=== PATIENT | male | born 1985 | race American Indian/Alaskan Native ===

== ENCOUNTER 2017-01-14 13:53 | Emergency (ER) | payer OTHER ==
[2017-01-14] MEDS ORDERED: NACL 0.9% 1000 ML 1,000 ML IV ONE (15:12)
[2017-01-14] MEDS ORDERED: PEPCID IV ONE (15:12)
[2017-01-14] MEDS ORDERED: REGLAN IV ONE (15:12)
[2017-01-14 15:28] VITALS: BP 159/105
[2017-01-14 16:09] LABS: Basophils % (Auto) 0.7 % (0.0-1.8); Hematocrit 50.6 % (35.5-45.6); Hemoglobin 17.6 gm/dl (11.8-15.2); Mean Corpuscular HGB Conc 35 % (32-34); Mean Corpuscular Hemoglobin 32 pg (28-32); Mean Corpuscular Volume 91 fl (84-94); Platelet Count 222 K/mm3 (140-440); Red Blood Count 5.58 M/mm3 (3.65-5.03); Red Cell Distribution Width 13.5 % (13.2-15.2); White Blood Count 7.4 K/mm3 (4.5-11.0)
[2017-01-14 16:23] LABS: Alanine Aminotransferase 19 units/L (7-56); Albumin 4.3 g/dL (3.9-5); Albumin/Globulin Ratio 1.6 %; Alkaline Phosphatase 39 units/L (35-129); Anion Gap 23 mmol/L; Blood Urea Nitrogen 10 mg/dL (9-20); Calcium 8.9 mg/dL (8.4-10.2); Carbon Dioxide 22 mmol/L (22-30); Chloride 99.5 mmol/L (98-107); Glucose 88 mg/dL (75-100); Potassium 4.4 mmol/L (3.6-5.0); Sodium 140 mmol/L (137-145)
--- NOTE | 2017-01-14 21:14 | Emergency Department Report ---
Entered by SANDIE LIM, acting as scribe for DIMITRY BURNHAM PA. ED N/V/D HPI - General Chief complaint: Nausea/Vomiting/Diarrhea Stated complaint: ABD ISSUES Time Seen by Provider: 01/14/17 15:03 Source: patient Mode of arrival: Ambulatory Limitations: No Limitations - History of Present Illness Initial comments: 31 y/o male with a PMHx of HTN presents to the ED c/o nausea and vomiting for 3 days. Moderate in severity. Aggravated with eating and alleviated with nothing. Reports associated weakness, and substernal chest pain and epigastric abdominal pain with eating, but he denies throat constrictions, diarrhea, constipation, fever, and chills. Notes he hasn't eaten in 2 days, because he vomits the food contents up. Notes he has a burning sensation with PO intake. Patient states he was seen by his PCP 2 weeks ago for sudden onset of acid reflux and prescribed Nexium. Took prescribed Nexium 20 mg BID for the last 2 weeks with no relief. Denies Hx of GERD. NKDA. complaint: nausea, vomiting Onset/Timin -: days(s) Description of Vomiting: food contents, watery Associated Abdominal Pain: Yes (only with eating) Location: epigastric Radiation: none Severity: moderate Quality: other (burning) Consistency: constant Improves with: none Worsens with: eating Context: other (acid reflux) Associated Symptoms: denies other symptoms, chest pain (substernal chest pain with eating), nausea/vomiting, weakness, other (epigastric abdominal pain with eating). denies: myalgias, cough, diaphoresis, fever/chills, headaches, loss of appetite, malaise, rash, dysuria, shortness of breath, syncope - Related Data Previous Rx's Medication Instructions Recorded Last Taken Type Ondansetron [Zofran Odt] 4 mg PO TID #30 tab.rapdis 01/14/17 Unknown Rx Ranitidine HCl [Heartburn Relief] 150 mg PO BID #30 tablet 01/14/17 Unknown Rx Allergies Allergy/AdvReac Type Severity Reaction Status Date / Time No Known Allergies Allergy Unverified 01/14/17 14:08 ED Review of Systems Comment: All other systems reviewed and negative Constitutional: weakness. denies: chills, diaphoresis, fever Eyes: denies: eye pain, eye discharge, vision change ENT: denies: ear pain, throat pain Respiratory: denies: cough, orthopnea, shortness of breath, SOB with exertion, SOB at rest, stridor, wheezing Cardiovascular: chest pain (substernal chest pain with eating). denies: palpitations, dyspnea on exertion, orthopnea, edema, syncope, paroxysmal nocturnal dyspnea Gastrointestinal: abdominal pain (epigastric pain with eating), nausea, vomiting. denies: diarrhea, constipation Musculoskeletal: denies: back pain, joint swelling, arthralgia Skin: denies: rash, lesions Neurological: denies: headache, weakness, numbness, paresthesias Hematological/Lymphatic: denies: easy bleeding, easy bruising ED Past Medical Hx - Past Medical History Hx Hypertension: Yes - Surgical History Past Surgical History?: No - Social History Smoking Status: Current Every Day Smoker Substance Use Type: Alcohol - Medications Home Medications: Home Medications Medication Instructions Recorded Confirmed Last Taken Type Ondansetron [Zofran Odt] 4 mg PO TID #30 tab.rapdis 01/14/17 Unknown Rx Ranitidine HCl [Heartburn Relief] 150 mg PO BID #30 tablet 01/14/17 Unknown Rx ED Physical Exam - General Limitations: No Limitations General appearance: alert, in no apparent distress - Head Head exam: Present: atraumatic, normocephalic - Eye Eye exam: Present: normal appearance, PERRL, EOMI - ENT ENT exam: Present: normal exam, mucous membranes moist, normal external ear exam - Neck Neck exam: Present: normal inspection, full ROM. Absent: tenderness, meningismus, lymphadenopathy - Respiratory Respiratory exam: Present: normal lung sounds bilaterally. Absent: respiratory distress, wheezes, rales, rhonchi, stridor, accessory muscle use, decreased breath sounds - Cardiovascular Cardiovascular Exam: Present: regular rate, normal rhythm, normal heart sounds. Absent: systolic murmur, diastolic murmur, rubs, gallop - GI/Abdominal GI/Abdominal exam: Present: soft, normal bowel sounds. Absent: distended, tenderness, guarding, rebound, rigid - Extremities Exam Extremities exam: Present: normal inspection, full ROM - Back Exam Back exam: Present: normal inspection, full ROM - Neurological Exam Neurological exam: Present: alert, oriented X3 - Psychiatric Psychiatric exam: Present: normal affect, normal mood - Skin Skin exam: Present: warm, dry, intact. Absent: rash ED Course Vital Signs 01/14/17 01/14/17 14:08 15:27 Temperature 98.7 F Pulse Rate 87 63 Respiratory 16 18 Rate Blood Pressure 150/112 Blood Pressure 159/105 [Right] O2 Sat by Pulse 100 98 Oximetry ED Medical Decision Making - Lab Data Result diagrams: 01/14/17 15:21 01/14/17 15:21 - EKG Data EKG shows normal: sinus rhythm Rate: normal - EKG Data Interpretation: normal EKG - Medical Decision Making 31 year-old male presents with acute GERD ED course: CBC, CMP was ordered on patient. Patient received IV fluids, and IV Pepcid and Reglan. Patient had no episodes of vomiting in the ED stay. Discuss to discontinue Nexium and started on Pepsi. Discussed to follow up with primary care as well as reading intervention teacher. Discussed the patient acid reflux medication as prescribed. Discussed the patient to follow instructions as given and follow-up with GI specialist as referred. Patient reports to feeling much better after ED stay and states to being hungry and is brought up going get some food upon leaving the ER Discussed if his symptoms return or worsen to return to the ED Vital signs are normal patient is in no acute distress ED Disposition Clinical Impression: GERD (gastroesophageal reflux disease) Qualifiers: Esophagitis presence: without esophagitis Qualified Code(s): K21.9 - Gastro- esophageal reflux disease without esophagitis Disposition: TO HOME OR SELFCARE Is pt being admited?: No Does the pt Need Aspirin: No Condition: Stable Instructions: Gastroesophageal Reflux Disease (ED), Diet for Ulcers and Gastritis (ED) Prescriptions: Ondansetron [Zofran Odt] 4 mg PO TID #30 tab.rapdis Ranitidine HCl [Heartburn Relief] 150 mg PO BID #30 tablet Referrals: PRIMARY CARE, [Primary Care Provider] - 3-5 Days BELLO YOUSIF NP [Advanced Practice Nurse] - 3-5 Days VIRIDIANA MATHEW FNP [Advanced Practice Nurse] - 3-5 Days WILMAN DUNLAP NP [Advanced Practice Nurse] - 3-5 Days AELXX ZUNIGA MD [Staff Physician] - 3-5 Days Forms: Accompanied Note, Work/School Release Form(ED) Time of Disposition: 16:46 This documentation as recorded by the janeibeRAPHAEL JASMINE,accurately reflects the service I personally performed and the decisions made by ,DIMITRY BURNHAM PA.
== END 2017-01-14 16:48 | disposition home or self-care (01) ==
LOC: ED 13:53
DX: K21.9 Gastro-esophageal reflux disease without esophagitis (principal); I10 Essential (primary) hypertension; F17.200 Nicotine dependence, unspecified, uncomplicated
CPT/HCPCS: 36415; 80053; 85025; 93005; 93010; 96361; 96374; 96375; 99283; J2765; J7030